=== PATIENT | female | born 1980 ===

== ENCOUNTER 2018-06-25 11:35 | Outpatient (CLI) | payer OTHER | END 2018-06-25 11:36 | disposition home or self-care (01) | LOC: SONOGRAMA 11:35 → RX STUDY 12:15 | DX: N84.0 Polyp of corpus uteri (principal) ==

== ENCOUNTER 2018-10-10 05:00 | Day surgery (SDC) | payer OTHER ==
[2018-10-10] MEDS ORDERED: DOXYCYCLINE HY100 M3 PO (08:05)
[2018-10-10] MEDS ORDERED: Tylenol #3 PO (08:05)
== END 2018-10-10 14:00 | disposition home or self-care (01) ==
LOC: CIR.AMB 05:00
DX: N84.0 Polyp of corpus uteri (principal); D25.0 Submucous leiomyoma of uterus